=== PATIENT | female | born 1940 | race Caucasian/White ===

== ENCOUNTER 2017-01-08 18:50 | Inpatient (IN) | payer MEDICARE, OTHER ==
[~2017-01-08 18:50] MED LIST: ACCUNEB0.21 MG/ML IH; ADVIL200 M1 PO; ADVIL200 M2 PO; ALBUTEROL0.83 MG/ML NEB; ALBUTEROL2.5 MG/3 M INH; ASPIRIN325 M3 PO; ASPIRIN325 MG PO; CLORAZEPATE DI7.5 MG PO; COLACE100 M1 PO; COMBIVENT INH14.7 GM IH; COMBIVENT RESPIM4 G1 INH; COMBIVENT1 PUFF INH; DUONEB 2.5-0.5MG3 ML AERO NEB; FLAGYL500 M1 PO; HYZAAR 100-251 EACH PO; HYZAAR 100-251 TAB PO; IPRATROPIU0.2 MG/1 M INH; IPRATROPIUM0.2 MG/ML IH; IPRATROPIUM0.2 MG/ML NEB; LEVAQUIN500 M1 PO; LORTAB 5-325 M1 EAC1 PO; LORTAB 5/5001 EA PO; LUMIGAN2.5 M1 EACH EYE; LUMIGAN2.5 M2 EACH EYE; MIRALAX17 G2 PO; NORCO 5-325 TA1 EACH PO; PLAVIX75 M1 PO; PLAVIX75 MG PO; POTASSIUM CHLO20 MEQ PO; PRAVACHOL40 M1 PO; PRAVACHOL40 MG PO; PREDNISONE10 MG PO; PROTONIX40 M2 PO; PROTONIX40 MG PO; PROVENTIL17 GM IH; SYMBICORT 16010.2 GM IH; TRIAMCINOLONE A15 TP; VENTOLIN HFA8 GM IH
[2017-01-08] MEDS ORDERED: LOSARTAN-HCTZ1 EAC5 (19:17)
[2017-01-08 23:08] LABS: BASO % 0.5 % (0-2); BASO ABSOLUTE COUNT 0.1 tho/cmm (0.0-0.2); EOS % 3.2 % (0-7); EOSINOPHIL ABSOLUTE COUNT 0.4 tho/cmm (0.0-0.7); HCT-HEMATOCRIT 42.2 % (34.0-49.0); HGB-HEMOGLOBIN 14.6 gm/dl (12.0-15.5); IMMATURE GRANULOCYTES ABSOLUTE 0.06 tho/cmm (0-0.03); IMMATURE GRANULOCYTES PERCENT 0.6 % (0-0.3); LYMPH % 9.3 % (20-45); MCH (MEAN CORPUSCULAR HGB) 31.3 pg (28.0-32.0); MCHC MEAN CORPUSCULAR HGB CONC 34.6 % (32.0-36.0); MCV (MEAN CELL VOLUME) 90.4 fl (82.0-96.0); MEAN PLATELET VOLUME 10.3 cmc (9.4-12.4); MONO % 10.8 % (0-12); MONOCYTE ABSOLUTE COUNT 1.2 tho/cmm (0.0-1.2); NEUTROPHIL ABSOLUTE COUNT 8.2 tho/cmm (1.6-8.0); NEUTROPHIL-AUTOMATED 8.2 tho/cmm (1.6-8.0); NEUTROPHILS % 75.6 % (40-80); PLATELET COUNT 335 tho/cmm (150-450); RED BLOOD COUNT 4.67 mil/cmm (4.00-5.20); WHITE BLOOD COUNT 10.8 tho/cmm (4.0-10.0)
[2017-01-08 23:15] LABS: BLOOD UREA NITROGEN 25 mg/dl (6-24); CALCIUM 8.8 mg/dl (8.5-10.5); CARBON DIOXIDE-VENOUS 28 mmol/L (22-32); CHLORIDE 103 mmol/l (96-110); CREATININE 1.97 mg/dl (0.50-1.10); GLUCOSE 96 mg/dL (70-110); SODIUM 138 mmol/L (135-145); eGFR VALUE FOR BLACK 28 mL/Min
[2017-01-08 23:24] LABS: ANION GAP 10 mmol/L (0-20); C-REACTIVE PROTEIN <0.3 mg/dl (0-0.9)
[2017-01-08 23:26] LABS: PROCALCITONIN <0.05 ng/ml (0.05-0.09)
[2017-01-09 06:34] LABS: BASO % 0.5 % (0-2); BASO ABSOLUTE COUNT 0.1 tho/cmm (0.0-0.2); EOS % 3.8 % (0-7); EOSINOPHIL ABSOLUTE COUNT 0.4 tho/cmm (0.0-0.7); HCT-HEMATOCRIT 39.2 % (34.0-49.0); HGB-HEMOGLOBIN 13.4 gm/dl (12.0-15.5); IMMATURE GRANULOCYTES ABSOLUTE 0.04 tho/cmm (0-0.03); IMMATURE GRANULOCYTES PERCENT 0.4 % (0-0.3); LYMPH % 7.6 % (20-45); LYMPH ABSOLUTE COUNT 0.8 tho/cmm (0.8-4.5); MCH (MEAN CORPUSCULAR HGB) 30.9 pg (28.0-32.0); MCHC MEAN CORPUSCULAR HGB CONC 34.2 % (32.0-36.0); MCV (MEAN CELL VOLUME) 90.5 fl (82.0-96.0); MEAN PLATELET VOLUME 10.2 cmc (9.4-12.4); MONO % 10.8 % (0-12); MONOCYTE ABSOLUTE COUNT 1.1 tho/cmm (0.0-1.2); NEUTROPHILS % 76.9 % (40-80); PLATELET COUNT 290 tho/cmm (150-450); RED BLOOD COUNT 4.33 mil/cmm (4.00-5.20); WHITE BLOOD COUNT 10.5 tho/cmm (4.0-10.0)
[2017-01-09 06:42] LABS: ANION GAP 12 mmol/L (0-20); BLOOD UREA NITROGEN 24 mg/dl (6-24); CALCIUM 8.4 mg/dl (8.5-10.5); CARBON DIOXIDE-VENOUS 26 mmol/L (22-32); CHLORIDE 103 mmol/l (96-110); GLUCOSE 119 mg/dL (70-110); POTASSIUM 3.8 mmol/L (3.7-5.1); SODIUM 137 mmol/L (135-145); eGFR VALUE FOR BLACK 27 mL/Min
[2017-01-09 07:01] LABS: C-REACTIVE PROTEIN <0.3 mg/dl (0-0.9)
[2017-01-09 15:56] LABS: BODY FLUID APPEARANCE BLOODY (CLEAR); BODY FLUID COLOR YELLOW (COLORLESS); BODY FLUID LYMPHOCYTES 81 %; BODY FLUID MACROPHAGES 13 %; BODY FLUID NEUTROPHILS 6 %; BODY FLUID RBC COUNT 26000 cmm (0); BODY FLUID TYPE PLEURAL; BODY FLUID VOLUME 1000 ml; BODY FLUID WBC COUNT 3721 cmm
[2017-01-10 08:16] LABS: BLOOD UREA NITROGEN 32 mg/dl (6-24); CALCIUM 8.7 mg/dl (8.5-10.5); CARBON DIOXIDE-VENOUS 24 mmol/L (22-32); CHLORIDE 104 mmol/l (96-110); GLUCOSE 174 mg/dL (70-110); SODIUM 138 mmol/L (135-145); eGFR VALUE FOR BLACK 21 mL/Min
[2017-01-10 08:24] LABS: ANION GAP 14 mmol/L (0-20); CREATININE 2.52 mg/dl (0.50-1.10); POTASSIUM 4.1 mmol/L (3.7-5.1)
--- NOTE | 2017-01-10 12:46 | NUR ---
PT BECAME INCREASINGLY ANXIOUS AND VERBALIZING SHE WANTED TO GO HOME. ADVISED PT PULMONARY DOCTOR NEEDS TO SEE AND DISCHARGE, PT REFUSED WANTING TO WAIT. PT CAME TO DESK AND SAID SHE WANTED TO LEAVE NOW AND DIDN'T WANT TO WAIT FOR THE DOCTOR. PT SIGNED AMA FORM AND LEFT WITH SON.
== END 2017-01-10 11:30 | DRG 190 ==
LOC: 5EB 18:50
PROVIDERS: Family Medicine; Internal Medicine; Internal Medicine Critical Care Medicine; ADMIT Family Medicine
PROC: 0W993ZX Drainage of Right Pleural Cavity, Percutaneous Approach, Diagnostic (ICD-10-PCS; principal; 2017-01-09)
DX: J44.0 Chronic obstructive pulmonary disease with (acute) lower respiratory infection (principal); J18.9 Pneumonia, unspecified organism; J90 Pleural effusion, not elsewhere classified; N18.4 Chronic kidney disease, stage 4 (severe); I73.9 Peripheral vascular disease, unspecified; I12.9 Hypertensive chronic kidney disease with stage 1 through stage 4 chronic kidney disease, or unspecified chronic kidney disease; M19.90 Unspecified osteoarthritis, unspecified site; E78.5 Hyperlipidemia, unspecified; F17.210 Nicotine dependence, cigarettes, uncomplicated; Z90.12 Acquired absence of left breast and nipple; Z85.3 Personal history of malignant neoplasm of breast
CPT/HCPCS: J1650; J1956; J2185; J3370